=== PATIENT | male | born 1945 | race Caucasian/White ===

== ENCOUNTER 2018-07-26 15:12 | Outpatient (CLI) | payer MEDICARE, BC | END 2018-07-26 23:59 | disposition home or self-care (01) | LOC: VAS 15:12 | PROVIDERS: ATTEND Pediatrics Sports Medicine | DX: S86.012A Strain of left Achilles tendon, initial encounter (principal); S86.011A Strain of right Achilles tendon, initial encounter; Z87.891 Personal history of nicotine dependence; X58.XXXA Exposure to other specified factors, initial encounter; Y93.89 Activity, other specified; Y92.89 Other specified places as the place of occurrence of the external cause; Y99.8 Other external cause status | CPT/HCPCS: 93970 ==